=== PATIENT | female | born 1965 | race Caucasian/White ===

== ENCOUNTER 2021-04-11 11:31 | Outpatient (REF) | payer OTHER, SELFPAY ==
[2021-04-11 13:18] LABS: MANUAL DIFF FLAG NO
[2021-04-11 13:20] LABS: Basophils Percent Auto 0.6 % (0-2); Eosinophils Absolute Auto 0.2 X10*3/uL (0.0-0.4); Eosinophils Percent Auto 3.2 % (0-4); Hematocrit 40.2 % (37.0-47.0); Hemoglobin 12.7 g/dl (12.0-16.0); Imm Gran Abs Auto 0.01 X10*3/uL (0.00-0.03); Imm Gran Pct Auto 0.2 % (0.0-0.4); Lymphocytes Absolute Auto 1.8 X10*3/uL (1.2-4.9); Lymphocytes Percent Auto 34.2 % (20-40); Mean Corpuscular HGB Conc 31.6 g/dl (31.0-35.0); Mean Corpuscular Hemoglobin 26.2 pg (27.0-33.0); Mean Corpuscular Volume 82.9 fL (80.0-98.0); Mean Platelet Volume 10.3 fL (9.4-12.3); Monocytes Absolute Auto 0.6 X10*3/uL (0.1-1.2); Monocytes Percent Auto 10.7 % (2-11); Neutrophils Absolute Auto 2.7 x10*3/uL (2.0-8.3); Neutrophils Percent Auto 51.1 % (45-73); Platelet Count 272 X10*3/uL (160-400); Red Blood Count 4.85 X10*6/uL (4.20-5.50); Red Cell Distribution Width 13.8 % (11.0-16.0); White Blood Count 5.4 X10*3/uL (4.8-10.8)
[2021-04-11 13:49] LABS: Alanine Aminotransferase 32 U/L (0-31); Anion Gap 12 (12-20); Aspartate Amino Transferase 21 U/L (5-31); Blood Urea Nitrogen 15 mg/dL (9-16); Calcium 9.4 mg/dL (8.4-10.2); Carbon Dioxide 27 mmol/L (22-29); Chloride 107 mmol/L (96-108); Cholesterol 253 mg/dL; Estimated Glomerular Filt Rate > 60; Glucose Fasting 88 mg/dL (60-99); HDL Cholesterol 74 mg/dL; LDL Cholesterol Calculated 162 mg/dl; Potassium 4.1 mmol/L (3.3-5.1); Sodium 142 mmol/L (135-145); Triglycerides 89 mg/dL
[2021-04-11 13:58] LABS: Vitamin D 25-OH Total 68.3 ng/mL (>30)
== END 2021-04-11 11:32 | disposition home or self-care (01) ==
LOC: HO.HMGCLDS 11:31
PROVIDERS: PCP Internal Medicine; Visit Provider Internal Medicine
DX: Z00.01 Encounter for general adult medical examination with abnormal findings (principal); E78.5 Hyperlipidemia, unspecified; Z78.0 Asymptomatic menopausal state
CPT/HCPCS: 36415; 80048; 80061; 82306; 84450; 84460; 85025

== ENCOUNTER 2021-04-17 16:10 | Outpatient (REF) | payer OTHER, SELFPAY ==
--- NOTE | ~2021-04-17 | MM_ITS ---
EXAMINATION: MM SCREENING DIGITAL BREAST TOMOSYNTHESIS, BILATERAL CLINICAL INFORMATION: Screening. Asymptomatic. The lifetime risk of breast cancer based on the Tyrer-Cuzick Model is 14%. COMPARISON: Outside mammography: 11/06/2018, 10/21/2017 ([place]). TECHNIQUE: Digital breast tomosynthesis is performed in both the craniocaudal and mediolateral oblique views along with computer-aided detection (CAD). Synthesized 2D images are generated from the tomosynthesis. FINDINGS: The breasts are extremely dense, which lowers the sensitivity of mammography (ACR BI-RADS breast composition Category d). There are no significant masses, abnormal calcifications, or other abnormalities. Parenchymal pattern is similar to prior outside studies. There is no developing density or architectural abnormality. The axilla and skin contours are unremarkable. No significant changes. MM/MM tomosynthesis screening BI IMPRESSION: No significant changes from prior outside exams. ASSESSMENT: BI-RADS 1: Negative RECOMMENDATION: Routine annual mammography screening. This patient's information was entered into a reminder system with a target due date for their next mammogram.
== END 2021-04-17 16:11 | disposition home or self-care (01) ==
LOC: HO.MAMMO 16:10
PROVIDERS: PCP Internal Medicine; Visit Provider Internal Medicine
DX: Z12.31 Encounter for screening mammogram for malignant neoplasm of breast (principal)
CPT/HCPCS: 77063; 77067

== ENCOUNTER 2021-05-06 15:14 | Outpatient (REF) | payer OTHER, SELFPAY ==
[2021-05-09 07:42] LABS: HPV mRNA E6/E7 rflx Not Detected (Not Detected)
== END 2021-05-06 15:15 | disposition home or self-care (01) ==
LOC: HO.LAB 15:14
PROVIDERS: PCP Internal Medicine; Visit Provider Obstetrics & Gynecology
DX: Z01.419 Encounter for gynecological examination (general) (routine) without abnormal findings (principal); N84.1 Polyp of cervix uteri; L91.8 Other hypertrophic disorders of the skin; Z87.891 Personal history of nicotine dependence
CPT/HCPCS: 87624; 88142; 88305

== ENCOUNTER → 2021-05-19 15:45 | Outpatient (BNVA) | payer OTHER, SELFPAY | PROVIDERS: Visit Provider Obstetrics & Gynecology ==

== ENCOUNTER → 2021-07-30 15:53 | Outpatient (BNVA) | payer OTHER, SELFPAY | PROVIDERS: Referring Provider Internal Medicine; Visit Provider Nurse Practitioner | DX: Z13.89 Encounter for screening for other disorder (principal) ==

== ENCOUNTER 2021-11-17 11:27 | Day surgery (SDC) | payer OTHER, SELFPAY ==
--- NOTE | 2021-11-16 10:21 | HO.ANESPROP2 ---
Documented by User: Brooklyn Alfonso NP 11/16/21 10:21 HPI - Anesthesia Eval Consult details Narrative: 56yo F for Colonoscopy PMFSH Active Problems Active Problems: All Active Problems (Updated 11/10/21 @ 15:05 by Twila Barnard, KIAH) Well woman exam (Acute) Cervical polyp (Acute) Skin tag (Acute) Family history of malignant neoplasm of breast in relative diagnosed when younger than 45 years of age (Acute) Dyslipidemia (Acute) Dyslipidemia (Acute) Cervical polyp (Acute) Tubular adenoma of colon (Acute) Narrow angle glaucoma of right eye (Acute) Narrow angle glaucoma of left eye (Acute) Past Medical History Medical History Cervical polyp Dyslipidemia Dyslipidemia Family history of malignant neoplasm of breast in relative diagnosed when younger than 45 years of age Narrow angle glaucoma of left eye Narrow angle glaucoma of right eye Tubular adenoma of colon Family History Family History Mother Mental health disorder Surgical History Surgical History Hx of colonoscopy Social History Social History Housing: House Alcohol intake: current Alcohol intake frequency: holidays/special occasions only Alcohol type: wine and hard liquor Patient Tobacco Use Status: Former Tobacco user e-Cigarette/Vaping Use: Never Used Substance Use Type: Marijuana Advance Directives: No Advance Directives Information Provided: Yes Current occupational status: employed Meds Allergies Allergy/AdvReac Type Severity Reaction Status Date / Time No Known Allergies Allergy Verified 11/10/21 15:05 Home Medications Medication Instructions Recorded Confirmed Last Taken Type Saccharomyces boulardii 250 mg 250 mg PO BID 04/09/21 11/10/21 Unknown History capsule (Daily Probiotic (S. boulardii)) calcium carbonate 600 mg calcium 600 mg PO DAILY 04/09/21 11/10/21 Unknown History (1,500 mg) tablet (Calcium) cholecalciferol (vitamin D3) 125 125 mcg PO DAILY 04/09/21 11/10/21 Unknown History mcg (5,000 unit) capsule coenzyme Q10 100 mg tablet 100 mg PO DAILY 04/09/21 11/10/21 Unknown History elderberry fruit 200 mg capsule mg PO 04/09/21 Unknown History magnesium citrate 4 gram oral 100 mg PO DAILY 04/09/21 11/10/21 Unknown History packet turmeric 400 mg capsule mg PO 04/09/21 Unknown History Exam Exam Date and Time: November 16, 2021 1021 Assessment and Plan Assessment Anesthesia Assessment: Chart Reviewed Documented by User: Max Parker MD 11/17/21 11:40 PMFSH Past Medical History Medical History Cervical polyp Dyslipidemia Dyslipidemia Family history of malignant neoplasm of breast in relative diagnosed when younger than 45 years of age Narrow angle glaucoma of left eye Narrow angle glaucoma of right eye Tubular adenoma of colon Family History Family History Mother Mental health disorder Family history of problems with anesthesia: No Surgical History Surgical History Hx of colonoscopy History of Problems with Anesthesia: No Social History Social History Housing: House Alcohol intake: current Alcohol intake frequency: holidays/special occasions only Alcohol type: wine and hard liquor Patient Tobacco Use Status: Former Tobacco user e-Cigarette/Vaping Use: Never Used Substance Use Type: Marijuana Advance Directives: No Advance Directives Information Provided: Yes Current occupational status: employed Meds Allergies Allergy/AdvReac Type Severity Reaction Status Date / Time No Known Allergies Allergy Verified 11/10/21 15:05 Home Medications Medication Instructions Recorded Confirmed Last Taken Type Saccharomyces boulardii 250 mg 250 mg PO BID 04/09/21 11/10/21 Unknown History capsule (Daily Probiotic (S. boulardii)) calcium carbonate 600 mg calcium 600 mg PO DAILY 04/09/21 11/10/21 Unknown History (1,500 mg) tablet (Calcium) cholecalciferol (vitamin D3) 125 125 mcg PO DAILY 04/09/21 11/10/21 Unknown History mcg (5,000 unit) capsule coenzyme Q10 100 mg tablet 100 mg PO DAILY 04/09/21 11/10/21 Unknown History elderberry fruit 200 mg capsule mg PO 04/09/21 Unknown History magnesium citrate 4 gram oral 100 mg PO DAILY 04/09/21 11/10/21 Unknown History packet turmeric 400 mg capsule mg PO 04/09/21 Unknown History Exam Airway Mallampati Class: I TM Dist: >3cm Loose/Missing/Broken Teeth: No (Clear) Lungs: rrr Assessment and Plan Final Anesthetic Review Family History of Problems with Anesthesia: No History of Problems with Anesthesia: No ASA Class: II Final Preanesthetic Review: No Changes in Pt Med Stat, Meds/Allgs Chart Reviewed, Consent Obtained/Reviewed and Anes Risks/Benef Reviewed Patient Risk: Low Procedure Risk: Low Anesthetic Plan Anesthetic Plan: MAC: Disposition: Standard PACU
--- NOTE | 2021-11-17 11:32 | MHC.SHP ---
Pre-Procedural Eval Section A Date of Service: 11/17/21 Section B Chief Complaint: Benign neoplasm of colon, Details of Present Illness: FH of polyps Relevant Family History (Specify if Yes): Yes Relevant Social History: None Present Medications: see Short Stay Collaborative assessment Medical History: Significant History (Cervical polyp Dyslipidemia Dyslipidemia Family history of malignant neoplasm of breast in relative diagnosed when younger than 45 years of age Narrow angle glaucoma of left eye Narrow angle glaucoma of right eye Tubular adenoma of colon) History of Previous Operations: Relevant previous surgery/procedure and date(s) (colonoscopy) Allergies: Allergies Allergy/AdvReac Type Severity Reaction Status Date / Time No Known Allergies Allergy Verified 11/10/21 15:05 Review of Systems Sugical H&P ROS: Negative: Constitution, Cardiovascular, Respiratory, Neurological, Psychiatric, Hem-Onc, Allergic/Immunologic, Gastrointestinal, Genitourinary, Musculoskeletal, Integumentary, Endocrine and Eyes/Ears/Nose/Throat Exam Surgical H&P Exam: Normal: HEENT, Normal: Heart, Normal: Lungs, Normal: Extremities, Normal: Abdomen, Normal: Skin and Normal: Neurological Plan Diagnosis/Plan: Unchanged I have reviewed the history and physical and performed a pertinent physical examination on my patient. No changes have occurred unless specified.
[2021-11-17 11:38] VITALS: BMI 20.1
--- NOTE | 2021-11-17 11:44 | P.OP_ITS ---
Operative Note Operative Note Date of Service: 11/17/21 Narrative: Operative Information Procedure Description: Colonoscopy Indication: screening, hx of colon polyps Anesthesia: MAC COLONOSCOPY Instrument: Olympus variable stiffness pediatric scope 190L Colonoscopy Monitoring: Vital signs and clinical assessment, continuous EKG monitoring, Pulse oximetry, Carbon Dioxide monitoring and blood pressure monitoring were done throughout the procedure. Colon withdrawal time was 10 minutes. Procedure: The patient was placed in the left lateral decubitis position and pre-procedure medications were administered. After a digital rectal examination of the ano-rectum, the video colonoscope was inserted into the rectum and advanced through the colon to the cecum/TI. The colonoscope was slowly withdrawn in a retrograde panoramic fashion and the colon mucosa was carefully examined including a retroflexed view of the rectum. Findings and interventions are described below. Procedure Difficulty: easy Findings: Terminal Ileum-normal Cecum:normal Ascending Colon: normal Transverse Colon -normal Descending Colon: 6-8 mm sessile polyp removed with cold forceps Sigmoid Colon: normal Rectum: Retroflexion with small to medium sized internal hemorrhoids, grade I Anorectum - normal Colon preparation: [place] Bowel Preparation Scale Right colon; 3 Transverse colon: 3 Left colon; 3 (0 = Unprepared colon segment with mucosa not seen due to solid stool that cannot be cleared. 1 = Portion of mucosa of the colon segment seen, but other areas of the colon segment not well seen due to staining, residual stool and/or opaque liquid. 2 = Minor amount of residual staining, small fragments of stool and/or opaque liquid, but mucosa of colon segment seen well. 3 = Entire mucosa of colon segment seen well with no residual staining, small fragments of stool or opaque liquid) Impression and Post Procedure Diagnosis: polyp internal hemorrhoids Plan: High fiber diet leaflet Avoid straining at stool, epsom salts and sitz bath, anusol supps or cream Repeat Colonoscopy in 5-7 years if adenomatous polyp, 10 yrs if hyperplastic or earlier if clinically indicated Above findings were reviewed with the patient and relevant handouts were provided if indicated.
[2021-11-17 11:45] VITALS: BP 94/33; PULSE 60; RESP 16; TEMP 36.4; O2SAT 100
[2021-11-17] MEDS: Lactated Ringers 1,000 ML 100 ML IVCONT (11:51)
[2021-11-17 12:25] VITALS: BP 82/46; PULSE 60; RESP 18; TEMP 36.3; O2SAT 100
[2021-11-17 12:41] VITALS: BP 106/48; PULSE 54; RESP 18; TEMP 36.3; O2SAT 100
== END 2021-11-17 13:24 | disposition home or self-care (01) ==
PROVIDERS: PCP Internal Medicine; Visit Provider Internal Medicine Gastroenterology
PROC: 0DJD8ZZ Inspection of Lower Intestinal Tract, Via Natural or Artificial Opening Endoscopic (ICD-10-PCS; CPT 45378; principal; 2021-11-17 12:40)
DX: Z12.11 Encounter for screening for malignant neoplasm of colon (principal); Z86.010 Personal history of colon polyps; K63.5 Polyp of colon; K64.0 First degree hemorrhoids; E78.5 Hyperlipidemia, unspecified; H40.033 Anatomical narrow angle, bilateral; Z79.899 Other long term (current) drug therapy; Z87.891 Personal history of nicotine dependence
CPT/HCPCS: 45380; 88305

== ENCOUNTER 2021-11-18 13:05 | Outpatient (REF) | payer OTHER, SELFPAY | END 2021-11-18 13:06 | disposition home or self-care (01) | LOC: HO.LAB 13:05 | PROVIDERS: Visit Provider Obstetrics & Gynecology | DX: L91.8 Other hypertrophic disorders of the skin (principal) | CPT/HCPCS: 11200; 11400; 88304 ==

== ENCOUNTER 2022-03-04 16:18 | Outpatient (REF) | payer OTHER, SELFPAY ==
--- NOTE | ~2022-03-04 | XR_ITS ---
EXAMINATION: XR SHOULDER, RIGHT CLINICAL INFORMATION: Right shoulder pain. COMPARISON: None TECHNIQUE: Three views of the right shoulder. FINDINGS: There is mild acromioclavicular osteoarthritis. Glenohumeral joint is well preserved. No fracture. Alignment is anatomic. Soft tissues are normal with no abnormal calcifications. XR/XR shoulder RT min 2V IMPRESSION: Mild acromioclavicular osteoarthritis. No acute osseous findings.
--- NOTE | ~2022-03-04 | XR_ITS ---
EXAMINATION: XR KNEE, RIGHT CLINICAL INFORMATION: Right knee pain COMPARISON: None TECHNIQUE: AP, lateral, and both oblique views of the right knee. FINDINGS: Small enthesopathic spur at the quadriceps tendon insertion on the patella. No fracture or malalignment. Bone mineralization is normal. Joint spaces are well-preserved. No joint effusion. XR/XR knee RT 4V IMPRESSION: No acute osseous abnormalities at the right knee.
== END 2022-03-04 16:19 | disposition home or self-care (01) ==
LOC: HO.HMGCX 16:18
PROVIDERS: PCP Internal Medicine; Visit Provider Internal Medicine
DX: M25.511 Pain in right shoulder (principal); M25.561 Pain in right knee
CPT/HCPCS: 73030; 73564

== ENCOUNTER 2022-06-08 15:42 | Outpatient (REF) | payer OTHER, SELFPAY ==
--- NOTE | ~2022-06-08 | MM_ITS ---
EXAMINATION: MM SCREENING DIGITAL BREAST TOMOSYNTHESIS, BILATERAL CLINICAL INFORMATION: Screening. Asymptomatic. Family history premenopausal breast cancer, sister. The lifetime risk of breast cancer based on the Tyrer-Cuzick Model is 18%. COMPARISON: Mammography: 04/17/2021, outside mammography 11/06/2018, 10/21/2017 ([place]). TECHNIQUE: Digital breast tomosynthesis is performed in both the craniocaudal and mediolateral oblique views along with computer-aided detection (CAD). Synthesized 2D images are generated from the tomosynthesis. FINDINGS: The breasts are extremely dense, which lowers the sensitivity of mammography (ACR BI-RADS breast composition Category d). There are no significant masses, abnormal calcifications, or other abnormalities. No architectural abnormality or developing density or significant change from prior studies. MM/MM tomosynthesis screening BI IMPRESSION: No mammographic evidence of malignancy. ASSESSMENT: BI-RADS 1: Negative RECOMMENDATION: Routine annual mammography screening. This patient's information was entered into a reminder system with a target due date for their next mammogram.
== END 2022-06-08 15:43 | disposition home or self-care (01) ==
LOC: HO.MAMMO 15:42
PROVIDERS: PCP Internal Medicine; Visit Provider Internal Medicine
DX: Z12.31 Encounter for screening mammogram for malignant neoplasm of breast (principal)
CPT/HCPCS: 77063; 77067

== ENCOUNTER 2022-09-23 10:01 | Outpatient (REF) | payer OTHER, SELFPAY ==
--- NOTE | 2022-09-23 10:04 | EMG_ITS ---
FINDINGS: Right median and ulnar motor and sensory studies were performed. Right radial sensory study was performed and paraspinal muscles were tested with the needle. IMPRESSION: 1. Mild right median neuropathy across carpal tunnel. 2. Mild right ulnar neuropathy across cubital tunnel. MD GOLDY Perales/LAUREN / [phone]
== END 2022-09-23 10:02 | disposition home or self-care (01) ==
LOC: HO.NEURO 10:01
PROVIDERS: PCP Internal Medicine; Visit Provider Internal Medicine
DX: M25.531 Pain in right wrist (principal); M25.532 Pain in left wrist; R20.0 Anesthesia of skin; R20.2 Paresthesia of skin
CPT/HCPCS: 95886; 95909

== ENCOUNTER 2022-09-29 10:26 | Outpatient (REF) | payer OTHER, SELFPAY ==
[2022-09-29 12:08] LABS: Alanine Aminotransferase 42 U/L (0-31); Anion Gap 9 (12-20); Aspartate Amino Transferase 34 U/L (5-31); Blood Urea Nitrogen 11 mg/dL (9-16); Calcium 9.3 mg/dL (8.4-10.2); Carbon Dioxide 29 mmol/L (22-29); Chloride 103 mmol/L (96-108); Cholesterol 212 mg/dL; Estimated Glomerular Filt Rate > 60; Glucose Fasting 85 mg/dL (60-99); HDL Cholesterol 65 mg/dL; LDL Cholesterol Calculated 138 mg/dl; Potassium 4.7 mmol/L (3.3-5.1); Sodium 136 mmol/L (135-145); Triglycerides 49 mg/dL
[2022-09-29 12:19] LABS: Vitamin D 25-OH Total 92.8 ng/mL (>30)
[2022-09-29 12:28] LABS: Folate 17.8 ng/mL (> or = 4.0); Vitamin B12 1170 pg/mL (200-900)
== END 2022-09-29 10:27 | disposition home or self-care (01) ==
LOC: HO.HMGCLDS 10:26
PROVIDERS: PCP Internal Medicine; Visit Provider Internal Medicine
DX: Z00.01 Encounter for general adult medical examination with abnormal findings (principal); Z13.9 Encounter for screening, unspecified; E78.5 Hyperlipidemia, unspecified; Z78.0 Asymptomatic menopausal state
CPT/HCPCS: 36415; 80048; 80061; 82306; 82607; 82746; 84450; 84460

== ENCOUNTER 2022-12-28 15:23 | Outpatient (AMB) | payer OTHER, SELFPAY ==
[2022-12-28 15:31] VITALS: BP 100/60; BMI 20.1
--- NOTE | 2022-12-28 15:31 | A.OFFVIS_ITS ---
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 No complaints. Last Pap/HPV was negative in 05/26 Last Mammogram was BI-RADS 1 in 06/24 Last Colonoscopy was done in 11/23 [facility] Medical History Numbness and tingling in both hands Bilateral wrist pain Knee pain, right Shoulder pain, right Family history of malignant neoplasm of breast in relative diagnosed when younger than 45 years of age Dyslipidemia Cervical polyp Tubular adenoma of colon Narrow angle glaucoma of right eye Narrow angle glaucoma of left eye Surgical History Hx of colonoscopy Family History Mother Mental health disorder Social History (Updated 12/28/22 @ 15:35 by Batsheva Jackson CMA) Housing: House Alcohol intake: current Alcohol intake frequency: holidays/special occasions only Alcohol type: wine and hard liquor Patient Tobacco Use Status: Former Tobacco user e-Cigarette/Vaping Use: Never Used Substance Use Type: Marijuana Current occupational status: employed Current occupation: teacher Cognitive needs: No Hearing needs: No Vision needs: Yes Female Reproductive History Menstrual Age of Menarche: 12 Total pregnancies: 0 Date of last pap smear: 05/31/21 Date of Mammogram: 06/08/22 Review of Systems Const All systems reviewed & are unremarkable except as noted in HPI and below Card Reports as per HPI Resp Reports as per HPI GI Reports as per HPI and Reports no additional complaints Reports as per HPI Physical Exam Vital Signs: Last Vital Signs BP 100/60 12/28/22 15:31 BMI result Body Mass Index 20.1 Const General: cooperative, healthy appearing and comfortable Chest Chest palpation & inspection: normal inspection of the chest and normal palpation of entire chest wall Breast/axilla inspection: normal inspection of the breasts and normal inspection of the axillae Breast/axilla palpation: normal palpation of the breasts, normal palpation of the axillae and no axillary lymphadenopathy Resp Effort & Inspection: normal respiratory effort Auscultation: clear to auscultation bilaterally Percussion: percussion normal Cardio Palpation: normal PMI Rate: regular rate Rhythm: regular rhythm Heart sounds: no murmurs and no rubs Peripheral pulses: Peripheral pulses 2+ throughout GI Inspection: Yes normal to inspection Palpation (GI): Soft to palpation, nontender, no guarding, not rigid and No hepatosplenomegaly present Percussion: Yes normal to percussion Auscultation: normal bowel sounds Rectal Exam - Female: deferred General: Yes bladder normal to palpation External Female Exam: No lesion Speculum Exam - Vagina: normal appearance of the vagina, normal palpation, normal vaginal discharge and not erythematous Speculum Exam - Cervix: normal appearance of the cervix and normal palpation Bimanual exam- vagina & uterus: normal bimanual exam, normal palpation, uterine size normal, bladder normal to palpation, consistency normal and normal palpation Bimanual Exam- Adnexa, other: normal adnexae, no masses and no tenderness Assessment & Plan Assessment & Plan (1) Well woman exam: Code(s): Z01.419 - Encounter for gynecological examination (general) (routine) without abnormal findings Plan: Co testing not indicated this year. Counseled the patient about the recommended dietary allowance of 1200 mg of Calcium & 600 IU of vitamin D. Instruction given to patient to schedule next screening Mammogram in 06/25. The patient was instructed to perform monthly self-breast exams and schedule annual exam in a year. All questions answered and the patient verbalized understanding. Coding Level of Care Code Est Pt Prev Care 40-64y(42262) Diagnoses Well woman exam Z01.419
== END 2022-12-28 16:24 | disposition home or self-care (01) ==
PROVIDERS: PCP Internal Medicine; Visit Provider Obstetrics & Gynecology
DX: Z01.419 Encounter for gynecological examination (general) (routine) without abnormal findings (principal)
CPT/HCPCS: 99396

== ENCOUNTER → 2022-12-28 15:23 | Outpatient (BNVA) | payer OTHER, SELFPAY | PROVIDERS: PCP Internal Medicine; Visit Provider Obstetrics & Gynecology ==

== ENCOUNTER 2024-12-01 13:12 | Outpatient (REF) | payer OTHER, SELFPAY ==
--- OUTSIDE RECORDS SUMMARY | 2024-12-01 13:14 | XMS_ITS | Clinical Summary ---
Author Organization [facility] Address [address] [place] [address] Care Team Providers Care Science Editor Name Role Phone Yamila Miller MD Primary Care Provider Lyndsay ilnazia Allergies No known active allergies Medications Medication Sig Dispensed Refills Start Date End Date Status Calcium Citrate-Vitamin D (CALCIUM + D OR) Take by mouth daily. 0 Active [place]-3 Fatty Acids (OMEGA 3 OR) Take by mouth daily. 0 Active Cholecalciferol (D-3-5) 5000 UNITS Cap Take 1 Cap by mouth daily. 30 Cap 0 05/18/2018 Active Pomegranate, Punica granatum, (POMEGRANATE EXTRACT) 250 MG Cap Take 1 Cap by mouth daily. 30 Cap 0 05/18/2018 Active Turmeric 500 MG Tab Take 1 Tab by mouth daily. 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 Alex 05/16/18 - monitor q6mo. IOP still normal. Saw Dr Bullock - recommended laser, will have in july 2018 Visual changes 05/18/2018 Polyp at cervical os 03/03/2018 Knee pain, bilateral 07/11/2017 Left hip pain 07/11/2017 External hemorrhoid Immunizations Name Administration Dates Next Due Influenza Vaccine-preservati ve Free-quadrivalent 4 Years 01/25/2019,01/23/2018 Tdap 09/12/2017 Family History Medical History Relation Name Comments No Known Problems Aunt Cataract Father Diabetes Father T2DM, hypertens ion, gout, hyperlipidemia, ascending aortic aneurysm Diabetes Mother T2DM, CKD, CAD, gout. hypertension, hypercholesterolemia, stroke, thrombocytopenia No Known Problems Other Diabetes Sister 1 CA Breast Sister 2 Diabetes Sister 2 No Known Problems Uncle Blindness Negative Hx CA Colon Negative Hx CA Ovarian Negative Hx Glaucoma Negative Hx Macular Degeneration Negative Hx Strabismus Negative Hx Relation Name Status Comments Aunt Father Alive Mother Alive Other Sister 1 Alive Sister 2 Alive Uncle Social History Tobacco Use Types Packs/Day Years Used Date Smoking Tobacco: Former Cigarettes 1 1 - 01/24/2008 Smokeless Tobacco: Never Tobacco Cessation:Counseling Given: Yes Alcohol Use Standard Drinks/Week Comments Yes 0 (1 standard drink = 0.6 oz pur e alcohol) once a month/socially wine Sex Assigned at Date Recorded Not on file Last Filed Vital Signs Vital Sign Reading Time Taken Comments Blood Pressure 106/62 01/25/2019 4:11 PM EDT Pulse 52 01/25/2019 4:11 PM EDT Temperature 36.9 C (98.5 F) 01/25/2019 4:11 PM EDT Respiratory Rate 14 01/25/2019 4:11 PM EDT Oxygen Saturation 98% 01/25/2019 4:11 PM EDT Inhaled Oxygen Concentration - - Weight 49.7 kg (109 lb 9.6 oz) 01/25/2019 4:11 P M EDT Height 159.4 cm (5' 2.75 ) 01/25/2019 4:11 PM ED T Body Mass Index 19.57 01/25/2019 4:11 PM EDT Plan of Treatment Health Maintenance Due Date Last Done Comments Covid-19 Vaccine (#1) 02/14/1966 SHINGLES VACCINE (1 of 2) 08/15/2015 CERVICAL CANCER SCREENING 08/13/20172016 (External Completion), 08/13/2016 MAMMOGRAM 11/07/2019 11/06/2018, 10/03, 09/20/2016 (External Completion), Additional history exists BASELINE HEALTH EXAM 40-64 01/24/2020 01/23/2018 COLON CANCER SCREENING 08/20/2021 7 (External Completion) CHOLESTEROL SCREENING 01/23/2023 01/23/2018 , 10/08/2016 (External Completion) DEPRESSION SCREENING/FOLLOWUP 04/04/2024 05/11/2018 SOCIAL NEEDS SCREENING 04/04/2024 01/25/2019 INFLUENZA (#1) 2024 01/25/2019, 01/23/2018 DTAP/TDAP/TD (2 - Td or Tdap) 09/13/2027 09/12/2017 PNEUMOCOCCAL VACCINE FOR HIG H RISK PATIENTS (#1) 2030 HEPATITIS C SCREENING Completed 09/12/2017 Care Teams Science Editor Relationship Specialty Start Date End Date Yamila Miller MD PCP - General Internal Medicine 06/13/17
--- OUTSIDE RECORDS SUMMARY | 2024-12-01 13:14 | XMS_ITS | Encounter Summary ---
Author Organization [facility] Address [address] [place] [address] Care Team Providers Care Architectural Model Maker Name Role Phone Yamila Miller MD Primary Care Provider Lyndsay rivera Encounter Details Date Type Department Care Team Description 01/12/2018 Grain Broker And Market Operator Report Medical Records [address] [place] [id number] [address] Dodson Social History Tobacco Use Types Packs/Day Years Used Date Smoking Tobacco: Former Smokeless Tobacco: Never Comments:less than 1 pack ci garettes a year Alcohol Use Standard Drinks/Week Comments Yes 0 (1 standard drink = 0.6 oz pur e alcohol) once a month/socially wine Sex Assigned at Date Recorded Not on file documented as of this encounter Plan of Treatment Not on file documented as of this encounter Visit Diagnoses Not on filedocumented in this encounter Care Teams Architectural Model Maker Relationship Specialty Start Date End Date Yamila Miller MD PCP - General Internal Medicine 06/13/17 documented as of this encounter
--- OUTSIDE RECORDS SUMMARY | 2024-12-01 13:14 | XMS_ITS | Encounter Summary ---
Author Organization [facility] Address [address] [place] [address] Care Team Providers Care Block Chopper Hand Name Role Phone Yamila Miller MD Primary Care Provider Lyndsay rivera Encounter Details Date Type Department Care Team Description 07/07/2017 Release of Information Medical Records [address] [place] [id number] Abstract, Provider Social History Tobacco Use Types Packs/Day Years [...] on filedocumented in this encounter Care Teams Block Chopper Hand Relationship Specialty Start Date End Date Yamila Miller MD PCP - General Internal Medicine 06/13/17 documented as of this encounter
--- OUTSIDE RECORDS SUMMARY | 2024-12-01 13:14 | XMS_ITS | Encounter Summary ---
Author Organization [facility] Address [address] [place] [address] Care Team Providers Care Catering And Events Manager Name Role Phone Yamila Miller MD Primary Care Provider Unava ilable Reason for Visit * Reason Onset Date Comments radiology 09/13/2017 XRAY Encounter Details Date Type Department Care Team Description 09/13/2017 Telephone Adult Medicine [address] [id number] Yamila Miller MD radiology (XRAY) Social History Tobacco Use Types Packs/Day Years Used Date Smoking Tobacco: Former Smokeless Tobacco: Never Comments:less than 1 pack ci garettes a year Alcohol Use Standard Drinks/Week Comments Yes 0 (1 standard drink = 0.6 oz pur e alcohol) once a month/socially wine Sex Assigned at Date Recorded Not on file documented as of this encounter Miscellaneous Notes * Telephone Encounter - Eliz Peñaloza - 09/13/2017 2:58 PM EDT Images sent to [facility]. * Telephone Encounter - Manan Greene - 09/13/2017 1:35 PM EDT Patient has appt , please send image of HIP from 07/05/2017 and 07/11/2017 to [facility]. Thanks documented in this encounter Plan of Treatment Not on file documented as of this encounter Visit Diagnoses Not on filedocumented in this encounter Care Teams Catering And Events Manager Relationship Specialty Start Date End Date Yamila Miller MD PCP - General Internal Medicine 06/13/17 documented as of this encounter
[2024-12-01 15:04] LABS: MANUAL DIFF FLAG NO
[2024-12-01 15:05] LABS: Hematocrit 39.3 % (37.0-47.0); Hemoglobin 13.1 g/dl (12.0-16.0); Imm Gran Abs Auto 0.01 X10*3/uL (0.00-0.03); Imm Gran Pct Auto 0.2 % (0.0-0.4); Lymphocytes Absolute Auto 2.0 X10*3/uL (1.2-4.9); Mean Corpuscular HGB Conc 33.3 g/dl (31.0-35.0); Mean Corpuscular Hemoglobin 26.6 pg (27.0-33.0); Mean Corpuscular Volume 79.9 fL (80.0-98.0); NRBC Abs Auto 0.000 X10*3/uL (0.0-0.012); NRBC Pct Auto 0.0 /100WBC (0.0-0.2); Platelet Count 261 X10*3/uL (160-400); Red Blood Count 4.92 X10*6/uL (4.20-5.50); White Blood Count 6.1 X10*3/uL (4.8-10.8)
[2024-12-01 15:06] LABS: Appearance Urine Clear; Glucose Urine UA Negative (Negative); PH 5.5 (5.0-9.0); Specific Gravity - Urine 1.010 (1.005-1.025); UMIC TRIGGER UACC YES
[2024-12-01 15:21] LABS: Alanine Aminotransferase 20 U/L (0-31); Albumin Level 4.3 g/dL (3.5-5.0); Alkaline Phosphatase 69 U/L (39-117); Anion Gap 15 (12-20); Aspartate Amino Transferase 28 U/L (5-31); Blood Urea Nitrogen 12 mg/dL (9-16); Calcium 8.9 mg/dL (8.4-10.2); Carbon Dioxide 25 mmol/L (22-29); Chloride 106 mmol/L (96-108); Cholesterol 219 mg/dL (<200); Estimated Glomerular Filt Rate > 60; HDL Cholesterol 66 mg/dL (>40); Potassium 4.6 mmol/L (3.3-5.1); Sodium 141 mmol/L (135-145); Total Protein 7.3 g/dL (6.5-8.0); Triglycerides 52 mg/dL (<150)
== END 2024-12-01 13:13 | disposition home or self-care (01) ==
LOC: HO.HMGCLDS 13:12
PROVIDERS: PCP Internal Medicine; Visit Provider Nurse Practitioner Family
DX: E78.5 Hyperlipidemia, unspecified (principal); E55.9 Vitamin D deficiency, unspecified
CPT/HCPCS: 36415; 80053; 80061; 81001; 82306; 84443; 85025

== ENCOUNTER 2024-12-11 11:57 | Outpatient (AMB) | payer OTHER, SELFPAY ==
--- NOTE | 2024-12-11 12:14 | A.OFFPC_ITS ---
Vital Signs 12/11/24 12:24 Height 5 ft 2 in Weight 116 lb BMI 21.2 BP 94/62 Blood Pressure Location Rt brachial Position Sitting Respiration 15 Pulse 57 Pulse Source Pulse Oximeter Temp 98.0 F Temp Source Oral Pulse Oximetry (%) 98 Oxygen Delivery Method Room Air Intake Visit Reasons: Annual PE Intake Note: Pt is here today for her PE: Last mammogram 06/08/22, colonoscopy 11/17/21, papsmear 05/07/21 Allergies No Known Allergies Allergy (Verified 12/11/24 12:39) Medication List - Last Reconciled 12/11/24 by Lianna Olsen MD biotin 5,000 mcg PO DAILY calcium carbonate (Calcium 600) 600 mg PO DAILY cholecalciferol (vitamin D3) 125 mcg PO DAILY coenzyme Q10 100 mg PO DAILY elderberry fruit mg PO folic acid-vit B6-vit B12 2.2-25-0.5 mg 1 tab PO DAILY oosj-ppeby-uah-D3-hyal-brian bor 750 mg-100 mg- 25 mcg tabs PO magnesium citrate 100 mg PO DAILY Saccharomyces boulardii (Daily Probiotic (S. boulardii)) 250 mg PO BID turmeric mg PO zinc citrate, zinc oxide 25 mg PO DAILY Tobacco use date assessed: 12/11/24 Dental Screening Dental Screen Date: 12/11/24 Did you have a dental visit in the last 12 months?: Yes Did you have a dental problem in the last 6 months where you did not have access to dental care?: No Was dental information given to patient?: Patient has dentist HPI Annual PE HPI Details Details 59 year lady here today for her physical exam. She is overdue on her screening mammogram, but is up to date on her cervical cancer screening, done by Dr. Higuera in 2021 with negative findings . She is up-to-date with her screening colonoscopy done on 11/17/[address] Quiñonez, with removal of hyperplastic polyp. She exetcises regularly and follows a low cholesterol diet. Recent labs showed normal fasting glucose, electrolytes, renal function, liver enzymes vitamin-D level and TSH level, however her total cholesterol and LDL cholesterol is higher than last check . She also has been experiencing intermittent episodes of chest tightness,, unrelated to activity which last several sec to a minute, not accompanied by any headache or shortness of breath or lightheadedness. Episode resolved spontaneously. [facility] Medical History (Updated 12/11/24 @ 12:56 by Lianna Olsen MD) Feeling of chest tightness Numbness and tingling in both hands Bilateral wrist pain Knee pain, right Shoulder pain, right Family history of malignant neoplasm of breast in relative diagnosed when younger than 45 years of age Dyslipidemia Cervical polyp Tubular adenoma of colon Narrow angle glaucoma of right eye Narrow angle glaucoma of left eye Surgical History Hx of colonoscopy Family History (Updated 12/11/24 @ 13:02 by Lianna Olsen MD) Mother Mental health disorder Coronary artery disease History of coronary artery bypass graft History of CVA (cerebrovascular accident) Sister Breast cancer, Onset Age: 40 Social History Housing: House Alcohol intake: current Alcohol intake frequency: holidays/special occasions only Alcohol type: wine and hard liquor Patient Tobacco Use Status: Former Tobacco user e-Cigarette/Vaping Use: Never Used Substance Use Type: Marijuana Current occupational status: employed Current occupation: teacher Cognitive needs: No Hearing needs: No Vision needs: Yes Female Reproductive History Menstrual Age of Menarche: 12 Questionnaire PHQ-9 Over the last 2 weeks, how often have you been bothered by any of the following problems? 1. Little interest or pleasure in doing things: not at all 2. Feeling down, depressed, or hopeless: not at all 3. Trouble falling or staying asleep, or sleeping too much: not at all 4. Feeling tired or having little energy: not at all 5. Poor appetite or overeating: not at all 6. Feeling bad about yourself - or that you are a failure or have let yourself or your family down: not at all 7. Trouble concentrating on things, such as reading the newspaper or watching television: not at all 8. Moving or speaking so slowly that other people could have noticed. Or the opposite - being so fidgety or restless that you have been moving around a lot more than usual: not at all 9. Thoughts that you would be better off or of hurting yourself in some way: not at all Total score: 0 Depression Screening Interpretation: Negative Depression Screening Done: Yes 76629 - PHQ-9 Billing: Yes Source: Developed by Drs. Aman Armenta, Latonya Georges, Robert Rhoades and colleagues, with an educational bridgette from [employer]. Thrive Questionnaire Date Thrive assessed: 12/11/24 I am a: Patient What is your living situation today?: I have a steady place to live Within the past 12 months, did the food you bought not last and you didn't have the money to get more?: Never true Within the past 12 months, did you worry whether your food would run out before you got money to buy more?: Never true Do you have trouble paying for medicines?: No Do you have trouble getting transportation to medical appointments?: No Do you have trouble paying your heating and electricity bill?: No Do you have trouble taking care of your child, family member or friend?: No Do you have trouble with day-to-day activities such as bathing, preparing meals, shopping, managing finances, etc.?: No Are you currently unemployed and looking for a job?: No Are you interested in more education?: No Please select the resources that you would like help with: None Currently or been in a relationship where the following occur: No concerns reported THRIVE Score: 0 AUDIT C Alcohol Use Questionnaire (AUDIT-C) 1. How often do you have a drink containing alcohol?: 2-4 times a month 2. How many drinks containing alcohol do you have on a typical day when you are drinking?: 1 or 2 3. How often do you have six or more drinks on one occasion?: Never Total Score: 2 Score Reviewed/Action Taken: Yes DOROTHY-7 AMB Questionnaire DOROTHY-7 Date DOROTHY - 7 assessed: 12/11/24 Feeling nervous, anxious, or on edge: 0 = Not at all Not being able to stop or control worryin = Not at all Worrying too much about different things: 0 = Not at all Trouble relaxin = Not at all Being so restless that it is hard to sit still: 0 = Not at all Becoming easily annoyed or irritable: 0 = Not at all Feeling afraid as if something awful might happen: 0 = Not at all Total DOROTHY-7 score (0-4 normal; 5-9 mild; 10-14 moderate; 15-21 severe): 0 Source: Developed by Drs. Aman Armenta, Latonya Georges, Robert Rhoades and colleagues, with an educational bridgette from [employer]. DOROTHY-7 Assessment Billing DOROTYH-7 Assessment Tool: DOROTHY-7 Assessment 69048 Review of Systems Const Denies body aches, Denies fatigue, Denies fever(s), Denies headache(s) and Denies weakness Eyes Details: sees [facility] for narrow angle glaucoma Denies change in vision ENT Denies dizziness, Denies headache(s) and Denies nasal congestion Card Denies lightheadedness, Denies palpitations and Denies dyspnea Resp Denies chest congestion, Denies cough, Denies dyspnea and Denies wheezing GI Denies abdominal pain, Denies change in bowel habits and Denies heartburn Denies hematuria, Denies urinary frequency, Denies dysuria and Denies urinary urgency Musc Reports no additional complaints Skin/Breast Denies breast pain, Denies breast mass, Denies lesions and Denies rash Neuro Denies dizziness, Denies headache(s) and Denies weakness Psych Reports no additional complaints Endo Denies fatigue, Denies polydipsia, Denies polyuria and Denies palpitations Walter/Lymph Denies easy bruising Aller/Immun Denies seasonal rhinorrhea and Denies wheezing Physical exam (Primary Care) Vital Signs: Last Vital Signs Temp 98.0 F 12/11/24 12:24 Pulse 57 12/11/24 12:24 Resp 15 12/11/24 12:24 BP 94/62 12/11/24 12:24 Pulse Ox 98 12/11/24 12:24 Oxygen Delivery Method Room Air 12/11/24 12:24 BMI result Body Mass Index 21.2 Tobacco/Smoking Status: Tobacco use Status Tobacco use date assessed 12/11/24 12/11/24 12:29 Patient Tobacco Use Status Former Tobacco user 12/11/24 12:15 e-Cigarette/Vaping Use Never Used 12/11/24 12:15 PHQ-9: PHQ-9 Score PHQ-9: Total score 0 12/15/24 12:54 Depression Screening Interpretation: Negative Thrive Assessment: Date of Thrive Assessment Date Thrive assessed 12/11/24 12/11/24 12:15 Currently or been in a relationship where the following occur: No concerns reported Advance Care Planning discussion: Completed/Scanned Date of discussion: 12/11/24 Who was present: Patient Forms completed: Health Care Proxy Time spent: 16-45 minutes Actual minutes spent: 2 Const Other: Alert oriented x3, no acute distress noted ambulatory with normal gait Orientation/consciousness: patient oriented x3 HENMT Head: Yes normocephalic Ears: external ears normal, TM's normal bilaterally and EAC's normal General nose exam: Normal external nose present Face and sinus: Yes face symmetric Mouth: Normal oral and palatal mucosa present and moist mucous membranes Eyes General: appearance normal, both eyes and all related structures Neck Neck: Yes full ROM and Yes no lymphadenopathy Thyroid: Thyroid normal Chest Breast/axilla palpation: normal palpation of the breasts Resp Effort & Inspection: normal respiratory effort and able to speak in complete sentences Auscultation: clear to auscultation bilaterally Cardio Rate: regular rate Rhythm: regular rhythm Heart sounds: S1 normal heart sound present and S2 normal heart sound present GI Palpation (GI): Soft to palpation, nontender, no guarding and no masses Auscultation: normal bowel sounds General: Yes no CVA tenderness Back/Spine/Pelvis Back: no CVA tenderness Skin Other: Ganglion cyst left wrist, hyperpigmented slightly raised lesion on mid back General skin exam: no rashes or lesions noted Neuro General: patient oriented x3, gait normal, tone normal, moves all extremities, Normal light touch and pain sensation and no focal motor deficits Extrem General: Yes full ROM, Yes no joint enlargement, Yes no pedal edema and Yes normal gait Psych Appearance: grossly normal Mental Status: mental status grossly normal Speech and movement: Normal speech and movement present Affect: normal affect Results Reviewed Results Reviewed: Name: Remigio Gonzalez Age/Sex: 59/F : 1965 Unit#: [id number] Attend Dr: Jewel Tejada Re12/01/24 Status: DEP [facility] Disch: SPEC : [id number] JOSEFINA: 12/01/24 STATUS: COMP REQ : [id number] RECD: 12/01/24-[address]: Jewel Tejada COMP: 12/01/24 ENTERED: 12/01/[address] [facility] DR: Lianna Olsen MD ORDERED: CBC Auto Diff Test Result Flag Reference WBC 6.1 4.8-10.8 X10*3/uL RBC 4.92 4.20-5.50 X10*6/uL HGB 13.1 12.0-16.0 g/dl HCT 39.3 37.0-47.0 % MCV 79.9 L 80.0-98.0 fL MCH 26.6 L 27.0-33.0 pg MCHC 33.3 31.0-35.0 g/dl RDW 13.5 11.0-16.0 % PLT 261 160-400 X10*3/uL MPV 10.7 9.4-12.3 fL Neut Pct Auto 53.9 45-73 % ImGran Pct Auto 0.2 0.0-0.4 % Lymp Pct Auto 32.9 20-40 % Sheridan Pct Auto 10.2 2-11 % Eos Pct Auto 2.3 0-4 % Baso Pct Auto 0.5 0-2 % NRBC Pct Auto 0.0 0.0-0.2 /100WBC ANC Neut Abs # 3.3 2.0-8.3 x10*3/uL ImGran Abs Auto 0.01 0.00-0.03 X10 *3/uL Lymph Abs Auto 2.0 1.2-4.9 X10*3/uL Sheridan Abs Auto 0.6 0.1-1.2 X10*3/uL Eos Abs Auto 0.1 0.0-0.4 X10*3/uL Baso Abs Auto 0.0 0.0-0.2 X10*3/uL NRBC Abs Auto 0.000 0.0-0.012 X10*3/uL Name: Remigio Gonzalez Age/Sex: 59/F : 1965 Unit#: [id number] Attend Dr: Jewel Tejada [facility]- Re12/01/24 Status: DEP REF Location: [facility] Disch: SPEC : [id number] JOSEFINA: 12/01/24 STATUS: COMP REQ : [id number] RECD: 12/01/24-[address]: Jewel Tejada [employer]ILD[employer] ESTIM[employer]-BC COMP: 12/01/24-1536 ENTERED: 12/01/24-[address]: Lianna Olsen MD ORDERED: CMP Fast, Lipid Panel, Vitamin D 25-OH, TSH Rflx Test Result Flag Reference Sodium 141 135-145 mmol/L Potassium 4.6 3.3-5.1 mmol/L CL 106 96-108 mmol/L CO2 25 22-29 mmol/L Gap 15 12-20 BUN 12 9-16 mg/dL Creat 0.69 0.5-1.4 mg/dL eGFR > 60 Chronic Kidney Disease: Estimated GFR < 60 mL/min/1.73m2 Severe Kidney Disease: Estimated GFR < 15 mL/min/1.73m2 FBS 79 60-99 mg/dL CA 8.9 8.4-10.2 mg/dL Total Bili 0.6 0.0-1.0 mg/dL AST (GOT) 28 5-31 U/L ALT (GPT) 20 0-31 U/L Protein, Total 7.3 6.5-8.0 g/dL Alb 4.3 3.5-5.0 g/dL Triglyceride 52 <150 mg/dL Desirable Triglyceride: less than 150 mg/dL Borderline High Triglyceride 150-199 mg/dL High Triglyceride: 200-499 mg/dL Very High Triglyceride: greater than or equal to 5OO mg/dL Cholesterol 219 H <200 mg/dL Desirable Cholesterol: less than 200 mg/dL Borderline High Cholesterol: 200-239 mg/dL High Cholesterol: greater than 239 mg/dL LDL Calculated 143 H <100 mg/dL Desirable LDL: less than 100 mg/dL Near Optimal/Above Optimal LDL: 110-129 mg/dL Borderline High LDL: 130-159 mg/dL High LDL: 160-189 mg/dL Very High LDL: greater than or equal to 190 mg/dL HDL 66 >40 mg/dL Desirable HDL: greater than 40 mg/dL Note: This HDL assay may give artificially low results in patients with liver disease. Alk Phos 69 39-117 U/L Vitamin D 25-OH 74.8 >30 ng/mL Health Based Reference Values* < 20 ng/mL Deficient 20-30 ng/mL Insufficient > 30 ng/mL Sufficient *Raina MARQUEZ. N Engl J Med. 2007;357:266-280 There is no well-established upper level of normal vitamin D levels. Some laboratories use 50 ng/mL as an upper limit of normal. However, toxicity is patient-dependent and may occur at any level. Careful correlation with the patient's presentation is necessary and, if there is concern for vitamin D toxicity, treatment should be considered irrespective of the serum level. Care must be taken in interpreting Vitamin D results from different laboratories and methodologies. Published data demonstrated that results from patients undergoing hemodialysis may show a negative bias when tested with various automated 25-OH vitamin D assays when compared to LC-MS/MS. When testing samples from patients whose predominant form of Vitamin D is Vitamin D2, such as patients receiving Vitamin D2 supplementation, results that are subtherapeutic should be confirmed with another method such as LC-MS/MS. TSH 1.26 0.32-4.0 uIU/mL Coding Level of Care Code Est Pt Prev Care 40-64y(37141) Diagnoses Annual visit for general adult medical examination with abnormal findings Z00.01 Dyslipidemia E78.5 Feeling of chest tightness R07.89 Breathlessness on moderate exertion R06.81 Screening for Malignant Neoplasm of Skin Z12.83 Skin lesion of back L98.9 Advance directive discussed with patient Z71.89 Additional Codes DOROTHY-7 Assessment Billing - DOROTHY-7 Assessment Tool: DOROTHY-7 Assessment 64480 ([id number]) PHQ-9 - 99384 - PHQ-9 Billing: Yes ([id number]) Vital Signs *Quality* - Advance Care Planning discussion: Completed/Scanned ([id number]) Vital Signs *Quality* - Time spent: 16-45 minutes ([id number]) Assessment & Plan Assessment & Plan (1) Annual visit for general adult medical examination with abnormal findings: Code(s): Z00.01 - Encounter for general adult medical examination with abnormal findings Plan: Latest fasting lab results reviewed with patient. Referred to film painter for dietary guidance regarding higher cholesterol levels. Continue regular dental visit every 6 months and regular eye exams, [facility]. Take adequate calcium in diet and vitamin-D 3 at 2000 IU per cap once a day, in addition to weight-bearing exercises to help maintain good muscle tone and weight control. Instructed to do self-breast exam, and recommended to get yearly mammogram, starting at age 40. Immunization information provided: Yearly flu vaccine, shingles vaccine starting at age 50, at age 65 to start getting Prevnar 13 followed 1 year later by Pneumovax 23. Colonoscopy (2) Dyslipidemia: Code(s): E78.5 - Hyperlipidemia, unspecified Category: Medical Plan: Referred to film painter for dietary guidance, repeat another fasting lipid panel in six-months and follow-up by telehealth after labs done (3) Feeling of chest tightness: Code(s): R07.89 - Other chest pain Category: Medical Plan: Stress test ordered (4) Breathlessness on moderate exertion: Code(s): R06.81 - Apnea, not elsewhere classified Plan: Stress test ordered, EKG done today showed presence of sinus bradycardia with no acute ST-T changes (5) Screening for Malignant Neoplasm of Skin: Code(s): Z12.83 - Encounter for screening for malignant neoplasm of skin Plan: Referred to [facility] (6) Skin lesion of back: Code(s): L98.9 - Disorder of the skin and subcutaneous tissue, unspecified Plan: Referred to [facility] (7) Advance directive discussed with patient: Code(s): Z71.89 - Other specified counseling Plan: Initiated the conversation about Advanced Directives. Advanced Directives help patients prepare for current and future decisions about their medical treatment and place of care. Discussed with patient that it is a process where a patients current condition and prognosis are reviewed, their wishes for information regarding their illness are elicited, and likely medical dilemmas are presented and options discussed. Healthcare proxy form completed today The form can be amended as needed, reviewed yearly and make changes as needed Orders: Orders CA echo stress exercise w con 12/11/24 E78.5 - Hyperlipidemia, unspecified, R06.81 - Apnea, not elsewhere classified, R07.89 - Other chest pain MM tomosynthesis screening BI 12/11/24 Z12.31 - Encounter for screening mammogram for malignant neoplasm of breast Lipid Panel 6 Months E78.5 - Hyperlipidemia, unspecified Referrals Dermatology Referral L98.9 - Disorder of the skin and subcutaneous tissue, unspecified, Z12.83 - Encounter for screening for malignant neoplasm of skin
[2024-12-11 12:24] VITALS: BP 94/62; PULSE 57; RESP 15; TEMP 36.7; O2SAT 98; BMI 21.2
== END 2024-12-11 14:29 | disposition home or self-care (01) ==
LOC: HO.HMCC 11:58
PROVIDERS: PCP Internal Medicine; Visit Provider Internal Medicine
DX: Z00.01 Encounter for general adult medical examination with abnormal findings (principal); E78.5 Hyperlipidemia, unspecified; R07.89 Other chest pain; R06.81 Apnea, not elsewhere classified; Z12.83 Encounter for screening for malignant neoplasm of skin; L98.9 Disorder of the skin and subcutaneous tissue, unspecified; Z71.89 Other specified counseling; Z00.00 Encounter for general adult medical examination without abnormal findings

== ENCOUNTER → 2024-12-11 11:57 | Outpatient (BNVA) | payer OTHER, SELFPAY | PROVIDERS: PCP Internal Medicine; Visit Provider Internal Medicine | DX: Z00.01 Encounter for general adult medical examination with abnormal findings (principal); E78.5 Hyperlipidemia, unspecified; R07.89 Other chest pain; R06.81 Apnea, not elsewhere classified; L98.9 Disorder of the skin and subcutaneous tissue, unspecified | CPT/HCPCS: 96127 ==

== ENCOUNTER → 2025-02-14 10:47 | Outpatient (REF) | payer OTHER, SELFPAY ==
--- NOTE | 2025-02-14 10:50 | CA_ITS ---
Acquisition Time: 2025-02-14 11:12:49 Total Exercise Time: 00:08:45 Test Indications: CP Medications: SEE H&P Protocol: ARNULFO Max HR: 155 BPM 96% of Pred: 161 BPM Max BP: 144/98 mmHG Max Work Load: 10.1 METS Exercise stress test with exercise 8 mins 45 secs of Arnulfo Protocol, achieving 96% MPHR, with reports of SOB, no chets pain, with frequent PACs and isolated PVCs, wiith normotensive response to exercise. With borderline ST changes in recovery not meeting criteria for ischemia. With exercise, difficult to interpret EKG due to artifacts and motion. In recovery, breathing returned to baseline. Echo imges obtained by tech at rest and post peak exercise. Definity contrast utilized. Test reviewed with Dr. Norman. Referred By: Lianna Olsen Electronically Signed By: Esdras Perez
== END ==
LOC: HO.CARD 10:47
PROVIDERS: PCP Internal Medicine; Visit Provider Internal Medicine
DX: R07.89 Other chest pain (principal); E78.5 Hyperlipidemia, unspecified; R06.81 Apnea, not elsewhere classified
CPT/HCPCS: 93350; Q9957

== ENCOUNTER → 2025-02-14 10:50 | Outpatient (BNV) | payer OTHER, SELFPAY | PROVIDERS: PCP Internal Medicine | DX: R94.31 Abnormal electrocardiogram [ECG] [EKG] (principal); R06.02 Shortness of breath; I49.1 Atrial premature depolarization; I49.3 Ventricular premature depolarization | CPT/HCPCS: 93016; 93018; 93350; 93352 ==

== ENCOUNTER 2025-03-06 15:36 | Outpatient (REF) | payer OTHER, SELFPAY ==
--- NOTE | ~2025-03-06 | MM_ITS ---
EXAMINATION: MM SCREENING DIGITAL BREAST TOMOSYNTHESIS, BILATERAL CLINICAL INFORMATION: Screening. Asymptomatic. COMPARISON: Mammography: Comparison is made with available priors TECHNIQUE: Digital breast mammography with tomosynthesis is performed in both the craniocaudal and mediolateral oblique views along with computer-aided detection (CAD). FINDINGS: The breasts are extremely dense, which lowers the sensitivity of mammography. There are no significant masses, abnormal calcifications, or other abnormalities. MM/MM tomosynthesis screening BI IMPRESSION: No mammographic evidence of malignancy. ASSESSMENT: BI-RADS Category 1: Negative RECOMMENDATION: Routine annual mammography screening. 1 year F/U This examination should not preclude the clinical evaluation of a suspicious palpable abnormality. This patient's information was entered into a reminder system with a target due date for their next mammogram. Electronically signed by: Ani Jimenez DO 03/08/2025 05:57 PM LOW
== END 2025-03-06 15:37 | disposition home or self-care (01) ==
LOC: HO.MAMMO 15:36
PROVIDERS: PCP Internal Medicine; Visit Provider Internal Medicine
DX: Z12.31 Encounter for screening mammogram for malignant neoplasm of breast (principal)
CPT/HCPCS: 77063; 77067

== ENCOUNTER → 2025-03-06 15:38 | Outpatient (BNV) | payer OTHER, SELFPAY | PROVIDERS: PCP Internal Medicine; Visit Provider Internal Medicine | DX: Z12.31 Encounter for screening mammogram for malignant neoplasm of breast (principal) | CPT/HCPCS: 77063; 77067 ==